=== PATIENT | female | born 1955 | race Caucasian/White ===

== ENCOUNTER 2020-09-18 15:12 | Outpatient (REF) | payer MEDICARE, MEDICAID, SELFPAY ==
--- NOTE | ~2020-09-18 | XR_ITS ---
EXAMINATION: XR HIP, RIGHT CLINICAL INFORMATION: Fall. Right hip pain. COMPARISON: None TECHNIQUE: Two views of the right hip. FINDINGS: No displaced fracture. No dislocation. Small lateral acetabular marginal osteophytes. No osseous erosion. Atherosclerotic calcifications. XR/XR hip RT min 2V IMPRESSION: No displaced fracture. Mild right hip osteoarthritis.
== END 2020-09-18 15:13 | disposition home or self-care (01) ==
LOC: HO.XRAY 15:12
PROVIDERS: PCP Internal Medicine; Visit Provider Internal Medicine
DX: Z13.89 Encounter for screening for other disorder (principal)
CPT/HCPCS: 73502

== ENCOUNTER 2020-09-18 17:25 | Emergency (ER) | payer MEDICARE, MEDICAID, SELFPAY ==
[2020-09-18 17:33] VITALS: BP 187/70; PULSE 108; RESP 18; TEMP 37.2; O2SAT 95; BMI 38.8
[2020-09-18 17:58] VITALS: BP 154/58; PULSE 100; RESP 19; TEMP 36.8; O2SAT 95
--- NOTE | 2020-09-18 18:14 | ED_ITS ---
HPI - Extremity Injury (Lower) General Chief Complaint: Extremity Injury, Lower Stated Complaint: abnormal xray - rt hip Time Seen by Provider: 09/18/20 17:35 Source: patient Mode of arrival: ambulatory Limitations: no limitations History of Present Illness HPI Narrative: 65 years old female sustained mechanical fall 5 days ago, patient has been complaining of right hip pain, pain started after the fall 5 days ago and progressively getting worse and more constant, patient still able to ambulate on her right lower extremities with difficulties a limping, patient was seen and evaluated by her PCP who ordered a right hip x-ray and ask her to come to the ED. Patient otherwise declined any head pain, neck pain, chest pain, abdominal pain. Related Data Previous Rx's Medication Instructions Recorded oxycodone 5 mg PO BID PRN #7 cap 09/18/20 Allergies Allergy/AdvReac Type Severity Reaction Status Date / Time No Known Allergies Allergy Unverified 04/03/20 17:13 [No Known Allergies*] Review of Systems Review of Systems: All other systems are reviewed and are negative Constitutional: Reports as per HPI and Reports no additional constitutional complaints Eyes: Reports as per HPI and Reports no additional eye complaints Reports system reviewed and no additional complaints, except as documented Cardiovascular: Reports as per HPI and Reports no additional cardiovascular complaints Respiratory: Reports as per HPI and Reports no additional respiratory complaints Gastrointestinal: Reports as per HPI and Reports no additional gastrointestinal complaints Genitourinary: Reports no additional female genitourinary complaints Musculoskeletal: Reports no additional musculoskeletal complaints Skin/Breast: Reports system reviewed and no additional complaints, except as docu Psychiatric: Reports no additional psychiatric complaints Endocrine: Reports no additional endocrine complaints Hematologic/Lymphatic: Reports no additional hematologic/lymphatic complaints Allergic/Immunologic: Reports no additional allergic/immunologic complaints Reports system reviewed and no additional complaints, except as documented and Reports Abnormal speech present [facility] Past Medical History Medical History COPD with asthma HLD (hyperlipidemia) HTN (hypertension) Stroke Surgical History H/O heart artery stent Social History Social History Alcohol intake: never Smoking Status: Never smoker Use of substances other than those prescribed or required for medical reasons: No Advance Directives: No Advance Directives Information Provided: Yes Physical Exam Vital Signs: Vital Signs: Last Vital Signs Temp 98.3 F 09/18/20 17:58 Pulse 100 09/18/20 17:58 Resp 19 09/18/20 17:58 BP 154/58 H 09/18/20 17:58 Pulse Ox 95 09/18/20 17:58 Body Mass Index 38.8 Vital signs have been reviewed as appeared to be correct. Blood pressure in the high range.. Heart rate normal. Respiration rate normal. Temperature normal. Oxygen saturation normal. Appearance: Alert. Oriented X3. No acute distress. Head: Normal external exam. Normocephalic. Atraumatic. No Taylor signs noted. No raccoon eyes noted Eyes: PERRLA. EOMI. Conjunctiva and sclera normal. Eyelids normal. ENT: TM's Normal. Pharynx normal. Uvula midline. Moist mucous membranes. No trismus noted. No drooling noted. No muffled voice noted. Neck: Normal inspection. Neck supple. FROM. No adenopathy. Thyroid Normal. No meningeal signs. No neck mass noted. CVS: Normal heart rate and rhythm. Heart sound normal. No murmurs noted. Pulses normal throughout. Respiratory: No respiratory distress. Painless inspiration. Breath sounds normal. No wheezes/rales/rhonchi noted. Chest nontender. No accessory muscle usage noted or decreased air movement noted. Abdomen: Soft and nontender. Bowel sounds normal in all 4 quadrants. No distention noted. No organomegaly noted. No visible injury noted. Back: No CVA tenderness. Full range of motion noted. Skin: Skin warm and dry. Normal skin color. Normal skin turgor. No rashes/lesions/lacerations noted. Extremities: Right hip area tenderness, no deformity, no lower extremities rotation or shortness. Neurovascularly intact. Neuro: Oriented X 3. No motor deficit. No sensory deficit. Reflexes normal. Course Course Course Narrative: Assessment and plan. 65-year-old female sustained mechanical fall 5 days ago at home, patient had outpatient x-ray of the right hip and patient was sent to the emergency department for further evaluation. Patient in the emergency department is able to bear weight with difficulty patient was given oxycodone pain has improved and patient now able to ambulate better with less pain. Will discharge the patient to follow-up with PCP with prescription of oxycodone 10. Pills. MDM - Extremity Injury (Lower) Imaging Data Right hip x-ray: Radiologist's impression: No displaced fracture. No dislocation. Small lateral acetabular marginal osteophytes. No osseous erosion. Atherosclerotic calcifications. Discharge Plan Discharge Clinical Impression: Contusion of hip, right Qualifiers: Encounter type: initial encounter Qualified Code(s): S70.01XA - Contusion of right hip, initial encounter Patient Disposition: Home, Self-Care Instructions: Hip Contusion (ED) Prescriptions: New oxycodone 5 mg capsule 5 mg PO BID PRN (Reason: pain) Qty: 7 RF: 0 Referrals: Giorgio Burgess MD [Primary Care Provider] - 2 days
[2020-09-18] MEDS: oxyCODONE HCl Immed Release 5 MG TABLET PO (18:22)
== END 2020-09-18 19:57 | disposition home or self-care (01) ==
PROVIDERS: Emergency Provider Emergency Medicine; PCP Internal Medicine
DX: S70.01XA Contusion of right hip, initial encounter (principal); W19.XXXA Unspecified fall, initial encounter; I10 Essential (primary) hypertension; E78.5 Hyperlipidemia, unspecified; Y93.9 Activity, unspecified; Y92.9 Unspecified place or not applicable; Y99.9 Unspecified external cause status; Z86.73 Personal history of transient ischemic attack (TIA), and cerebral infarction without residual deficits
CPT/HCPCS: 73502; 99283; 99284

== ENCOUNTER 2020-09-25 12:40 | Outpatient (REF) | payer MEDICARE, MEDICAID, SELFPAY ==
--- NOTE | ~2020-09-25 | CT_ITS ---
EXAMINATION: CT HIP WITHOUT CONTRAST, RIGHT CLINICAL INFORMATION: Status post fall, right hip pain. COMPARISON: X-ray of the right hip 09/18/2020. TECHNIQUE: CT scan of the right hip was performed with reconstruction imaging performed at the acquisition workstation. This CT examination was performed using dose optimization techniques as appropriate, variously including the following: *Automated exposure control *Adjustment of mA and/or kV according to patient size (this includes techniques or standardized protocols for targeted exams where dose is matched to indication/reason for exam; i.e. extremities or head) *Use of iterative reconstruction technique DLP: 205 mGy-cm FINDINGS: FEMOROACETABULAR JOINT: There are marginal osteophytes and mild joint space narrowing indicative of mild osteoarthritis. No definite effusion. I do not see a fracture. Mild degenerative changes of the symphysis pubis. MUSCLES AND TENDONS: Unremarkable. VASCULAR: There is calcific atherosclerotic disease. VISUALIZED BOWEL: Diverticulosis without diverticulitis of the sigmoid colon. LYMPH NODES: Normal. CT/CT hip RT wo con IMPRESSION: No fracture or acute abnormality. Mild osteoarthritis of the right hip. Mild degenerative changes of the symphysis pubis. Calcific atherosclerotic disease.
== END 2020-09-25 12:41 | disposition home or self-care (01) ==
LOC: HO.CT 12:40
PROVIDERS: Visit Provider Internal Medicine
DX: M25.551 Pain in right hip (principal)
CPT/HCPCS: 73700

== ENCOUNTER 2020-11-17 13:25 | Outpatient (REF) | payer MEDICARE, MEDICAID, SELFPAY ==
[2020-11-17 14:00] VITALS: BP 211/86; PULSE 97; RESP 20; TEMP 36.4; O2SAT 95
[2020-11-17 14:17] VITALS: BMI 36.9
== END 2020-11-17 13:26 | disposition home or self-care (01) ==
LOC: HO.MS 13:25
PROVIDERS: PCP Internal Medicine; Visit Provider Ophthalmology
PROC: (CPT 67840; principal; 2020-11-17 15:00)
DX: H02.824 Cysts of left upper eyelid (principal); L82.1 Other seborrheic keratosis; D23.122 Other benign neoplasm of skin of left lower eyelid, including canthus; I10 Essential (primary) hypertension; J44.9 Chronic obstructive pulmonary disease, unspecified; Z86.73 Personal history of transient ischemic attack (TIA), and cerebral infarction without residual deficits
CPT/HCPCS: 67840 ×2; 88304; 88305

== ENCOUNTER → 2020-12-09 11:26 | Outpatient (BNVA) | payer MEDICARE, MEDICAID, SELFPAY | PROVIDERS: PCP Internal Medicine; Referring Provider Internal Medicine; Visit Provider Surgery | DX: N64.4 Mastodynia (principal) | CPT/HCPCS: 99212 ==

== ENCOUNTER → 2021-01-12 14:18 | Outpatient (BNVA) | payer MEDICARE, MEDICAID, SELFPAY | PROVIDERS: PCP Internal Medicine; Referring Provider Internal Medicine; Visit Provider Internal Medicine Cardiovascular Disease | DX: I25.118 Atherosclerotic heart disease of native coronary artery with other forms of angina pectoris (principal); I10 Essential (primary) hypertension; I21.9 Acute myocardial infarction, unspecified; J44.9 Chronic obstructive pulmonary disease, unspecified; E78.5 Hyperlipidemia, unspecified; Z95.5 Presence of coronary angioplasty implant and graft; Z79.82 Long term (current) use of aspirin; Z79.899 Other long term (current) drug therapy | CPT/HCPCS: 93005; 99212 ==

== ENCOUNTER 2021-03-24 14:43 | Emergency (ER) | payer MEDICARE, MEDICAID, SELFPAY ==
--- NOTE | ~2021-03-24 | XR_ITS ---
EXAMINATION: XR WRIST, RIGHT CLINICAL INFORMATION: Pain COMPARISON: Previous exam December 2016 TECHNIQUE: 4 views of the right wrist. FINDINGS: No fracture or dislocation is seen. There may be slight widening of the scapholunate distance. Joint spaces are otherwise normal. There is a prominent soft tissue over the dorsal distal forearm. Soft tissues are otherwise unremarkable. XR/XR wrist RT min 3V IMPRESSION: Question slightly widened scapholunate joint. Prominent soft tissue over the dorsal distal forearm.
[2021-03-24 15:50] VITALS: BP 184/55; PULSE 82; RESP 18; TEMP 37; O2SAT 99; BMI 33.6
--- NOTE | 2021-03-24 18:24 | ED.EXTPRO ---
HPI - Extremity Problem General Chief complaint: Extremity Injury, Upper Stated complaint: rt wrist pain Time Seen by Provider: 03/24/21 18:24 Source: patient Mode of arrival: ambulatory Limitations: no limitations History of Present Illness HPI Narrative: right wrist pain for weeks, denies inury or fever Complaint: extremity pain Onset (ago): week(s) Pain Consistency: intermittent Location: right and upper extremity Quality: stabbing Related Data Home Medications Medication Instructions Recorded Confirmed amlodipine 10 mg tablet 10 mg PO DAILY 01/12/21 01/12/21 aspirin 81 mg tablet,delayed 81 mg PO DAILY 01/12/21 01/12/21 release (Adult Low Dose Aspirin) atorvastatin 40 mg tablet 40 mg PO BEDTIME 01/12/21 01/12/21 clopidogrel 75 mg tablet (Plavix) 75 mg PO DAILY 01/12/21 01/12/21 furosemide 20 mg tablet 20 mg PO DAILY 01/12/21 01/12/21 lisinopril 10 mg tablet 10 mg PO DAILY 01/12/21 01/12/21 Previous Rx's Medication Instructions Recorded isosorbide mononitrate 60 mg 120 mg PO DAILY #60 tab 01/12/21 tablet,extended release 24 hr metoprolol tartrate 50 mg tablet 50 mg PO BID #60 tab 01/12/21 naproxen 500 mg tablet (Naprosyn) 500 mg PO BID #20 tab 03/24/21 Allergies Allergy/AdvReac Type Severity Reaction Status Date / Time No Known Allergies Allergy Verified 01/12/21 15:00 [No Known Allergies*] Review of Systems Constitutional: Constitutional: Reports no additional constitutional complaints Eyes: Eyes: Reports no additional eye complaints ENT: Denies dizziness Cardiovascular: Cardiovascular: Reports no additional cardiovascular complaints Respiratory: Respiratory: Reports as per HPI Gastrointestinal: Gastrointestinal: Reports no additional gastrointestinal complaints Genitourinary: Genitourinary: Reports no additional female genitourinary complaints Musculoskeletal: Musculoskeletal: Reports no additional musculoskeletal complaints Integumentary/Breasts: Skin/Breast: Denies rash Neurologic: Reports system reviewed and no additional complaints, except as documented, Denies dizziness and Denies Sensory deficit (Neuro) Psychiatric: Psychiatric: Denies anxiety [facility] Past Medical History Medical History (Updated 03/24/21 @ 18:32 by Yeyo Myers MD) Bilateral carotid artery disease CAD (coronary artery disease) COPD with asthma HLD (hyperlipidemia) HTN (hypertension) Myocardial infarction Stroke Surgical History (Updated 12/09/20 @ 12:41 by Leonardo Nava MD) H/O heart artery stent Social History Social History Alcohol intake: never Physical Exam Vital Signs: Vital Signs: Last Vital Signs Temp 98.6 F 03/24/21 15:50 Pulse 82 03/24/21 15:50 Resp 18 03/24/21 15:50 BP 184/55 H 03/24/21 15:50 Pulse Ox 99 03/24/21 15:50 Body Mass Index 33.6 Const: General: healthy appearing Nutritional Appearance: average body habitus Orientation/consciousness: oriented to person and patient oriented x3 Limitations: no limitations HENMT: Head: Yes normal to inspection Ears: external ears normal General nose exam: Normal external nose present Mouth: Normal oral and palatal mucosa present and oropharynx normal Throat: Yes posterior oropharynx normal Eyes: General: appearance normal, both eyes and all related structures Neck: Other: supple Neck: Yes normal visual inspection Chest: Chest palpation & inspection: normal inspection of the chest Resp: Auscultation: clear to auscultation bilaterally Cardio: Jugular venous distension: no JVD Rate: regular rate Rhythm: regular rhythm Heart sounds: S1 normal heart sound present and S2 normal heart sound present GI: Inspection: Yes normal to inspection Palpation (GI): Soft to palpation, nontender and No hepatosplenomegaly present Auscultation: normal bowel sounds : General: Yes no CVA tenderness Back/Spine/Pelvis: Back: no CVA tenderness Skin: General skin exam: no rashes or lesions noted Neuro: General: oriented to person and patient oriented x3 Cranial nerves: Yes CN's II-XII intact bilaterally Motor exam (neuro): 5/5 motor strength present throughout Sensory Exam: No Sensory deficit (Neuro) Extrem: Other: wrist with pain with range of motion, no effusion or redness Psych: Appearance: grossly normal Course Reevaluation(s) Reevaluation #1: patient with some djd on xray will start nsaids. no evidence of effusion, infection or gout. Impression is arthritic flair Time: 18:28 MDM - Extremity (Nontraumatic) Imaging Data wrist xray: Radiologist's impression: FINDINGS: No fracture or dislocation is seen. There may be slight widening of the scapholunate distance.? Joint spaces are otherwise normal. There is a prominent soft tissue over the dorsal distal forearm. Soft tissues are otherwise unremarkable. XR/XR wrist RT min 3V IMPRESSION: Question slightly widened scapholunate joint. Prominent soft tissue over the dorsal distal forearm. Discharge Plan Discharge Clinical Impression: Arthritis Acute wrist pain Qualifiers: Laterality: right Qualified Code(s): M25.531 - Pain in right wrist Patient Disposition: Home, Self-Care Instructions: Arthralgia (ED) Prescriptions: New naproxen [Naprosyn] 500 mg tablet 500 mg PO BID Qty: 20 RF: 0 No Action aspirin [Adult Low Dose Aspirin] 81 mg tablet,delayed release (DR/EC) 81 mg PO DAILY RF: 0 furosemide 20 mg tablet 20 mg PO DAILY RF: 0 clopidogrel [Plavix] 75 mg tablet 75 mg PO DAILY RF: 0 atorvastatin 40 mg tablet 40 mg PO BEDTIME RF: 0 amlodipine 10 mg tablet 10 mg PO DAILY RF: 0 lisinopril 10 mg tablet 10 mg PO DAILY RF: 0 isosorbide mononitrate 60 mg tablet extended release 24 hr 120 mg PO DAILY Qty: 60 RF: 0 metoprolol tartrate 50 mg tablet 50 mg PO BID Qty: 60 RF: 2 Referrals: Giorgio Burgess MD [Primary Care Provider] - 5 days
[2021-03-24 18:46] VITALS: BP 193/79; PULSE 84; RESP 16; TEMP 36.3; O2SAT 97
[2021-03-24] MEDS: Ketorolac Tromethamine 60 MG/2 ML VIAL IM (18:47)
[2021-03-24 19:02] VITALS: BP 160/80; PULSE 88; RESP 18
== END 2021-03-24 19:12 | disposition home or self-care (01) ==
LOC: HO.ED 18:33
PROVIDERS: Emergency Provider Emergency Medicine; PCP Internal Medicine
DX: M25.531 Pain in right wrist (principal); M19.031 Primary osteoarthritis, right wrist; I10 Essential (primary) hypertension; E78.5 Hyperlipidemia, unspecified; Z79.02 Long term (current) use of antithrombotics/antiplatelets; Z79.82 Long term (current) use of aspirin; Z79.899 Other long term (current) drug therapy
CPT/HCPCS: 73110; 96372; 99283; 99284; J1885

== ENCOUNTER → 2021-04-01 09:11 | Outpatient (BNVA) | payer MEDICARE, MEDICAID, SELFPAY | PROVIDERS: PCP Internal Medicine; Referring Provider Internal Medicine; Visit Provider Internal Medicine Cardiovascular Disease | DX: I25.10 Atherosclerotic heart disease of native coronary artery without angina pectoris (principal); I10 Essential (primary) hypertension; R00.2 Palpitations | CPT/HCPCS: 99212 ==

== ENCOUNTER → 2021-04-02 14:50 | Outpatient (REF) | payer MEDICARE, MEDICAID, SELFPAY ==
--- NOTE | 2021-04-02 14:53 | HM_ITS ---
Total monitoring time 3 days 22 hours. Underlying rhythm is sinus. Minimum heart rate 76/Min. Maximum 158/min. Average 106/minute. No atrial fibrillation or flutter. Occasional supraventricular ectopy with a burden of 0.93%. Short runs noted-29 episodes Longest 18 beats. Occasional ventricular ectopy with 2 morphologies and 131 couplets with a burden of 1.39%. No patient events. MTDD
[2021-04-02 15:26] LABS: MANUAL DIFF FLAG NO
[2021-04-02 15:29] LABS: Basophils Percent Auto 0.4 % (0-2); Eosinophils Absolute Auto 0.4 X10*3/uL (0.0-0.4); Eosinophils Percent Auto 4.6 % (0-4); Hematocrit 34.3 % (37-47); Hemoglobin 10.6 g/dl (12.0-16.0); Imm Gran Abs Auto 0.03 X10*3/uL (0.00-0.03); Imm Gran Pct Auto 0.4 % (0.0-0.4); Lymphocytes Absolute Auto 0.9 X10*3/uL (1.2-4.9); Lymphocytes Percent Auto 11.4 % (20-40); Mean Corpuscular HGB Conc 30.9 g/dl (31.0-35.0); Mean Corpuscular Hemoglobin 27.9 pg (27.0-33.0); Mean Corpuscular Volume 90.3 fL (80-98); Mean Platelet Volume 9.8 fL (9.4-12.3); Monocytes Absolute Auto 0.7 X10*3/uL (0.1-1.2); Monocytes Percent Auto 9.3 % (2-11); Neutrophils Absolute Auto 5.8 X10*3/uL (2.0-8.3); Neutrophils Percent Auto 73.9 % (45-73); Platelet Count 321 X10*3/uL (160-400); Red Cell Distribution Width 14.6 % (11.0-16.0); White Blood Count 7.8 X10*3/uL (4.8-10.8)
[2021-04-02 15:53] LABS: Anion Gap 13 (12-20); Blood Urea Nitrogen 19 mg/dL (9-16); Calcium 8.8 mg/dL (8.4-10.2); Carbon Dioxide 28 mmol/L (22-29); Chloride 103 mmol/L (96-108); Cholesterol 182 mg/dL; Estimated Glomerular Filt Rate > 60; Glucose Random 116 mg/dL (60-115); HDL Cholesterol 36 mg/dL; Iron 42 mcg/dL (30-160); LDL Cholesterol Calculated 96 mg/dl; Percent Iron Saturation 12 % (15-50); Potassium 4.5 mmol/L (3.3-5.1); Sodium 139 mmol/L (135-145); Total Iron Binding Capacity 356 mcg/dL (228-428); Triglycerides 251 mg/dL; Unsaturated Iron Binding 314 ug/dL
[2021-04-02 16:28] LABS: Thyroid Stimulating Hormone 3.52 uIU/mL (0.32-4.0)
== END ==
LOC: HO.CARD 14:50
PROVIDERS: Internal Medicine; Visit Provider Internal Medicine Cardiovascular Disease
DX: R00.2 Palpitations (principal)
CPT/HCPCS: 36415; 80048; 80061; 83540; 84443; 85025; 93242

== ENCOUNTER 2021-04-08 13:37 | Emergency (ER) | payer MEDICARE, MEDICAID, SELFPAY ==
[2021-04-08 14:29] VITALS: BP 204/79; PULSE 111; RESP 16; TEMP 36.6; O2SAT 98; BMI 36.9
--- NOTE | 2021-04-09 12:59 | PC.NURSE ---
I contacted Farzana today as she was LWBS from our ED yesterday. She indicated she was still having difficulty breathing, audible wheezing heard over the phone with patient stating she is still having a hard time. I offered the patient to return for care today and she indicated she will be coming in this afternoon. 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
== END 2021-04-08 22:26 | disposition left against medical advice (07) ==
LOC: HO.ED 15:33
PROVIDERS: Emergency Provider Emergency Medicine; PCP Internal Medicine
DX: J44.1 Chronic obstructive pulmonary disease with (acute) exacerbation (principal)
CPT/HCPCS: 99282

== ENCOUNTER 2021-04-09 15:25 | Emergency (ER) | payer MEDICARE, MEDICAID, SELFPAY ==
--- NOTE | ~2021-04-09 | XR_ITS ---
EXAMINATION: XR CHEST CLINICAL INFORMATION: Shortness of breath COMPARISON: Chest x-ray March 12, 2020 TECHNIQUE: 2 views of the chest were obtained. FINDINGS: Surgical clips the base of left neck. 3 vascular stents are noted: Vascular stent over the right supraclavicular region. Vascular stent over the left cardiac silhouette. Vascular stent over the medial left superior mediastinum. No acute abnormality. Lungs are normally aerated. There is no pleural effusion or pneumothorax. Heart size is normal. Cardiac and mediastinal contours are normal. XR/XR chest 2V IMPRESSION: No acute abnormality of chest.
[2021-04-09 15:31] VITALS: BP 116/58; PULSE 86; RESP 18; TEMP 36.8; O2SAT 98; BMI 36.9
--- NOTE | 2021-04-10 11:32 | ED.GENADULT ---
HPI - General Adult - General Chief complaint: Dyspnea Stated complaint: Difficulty breathing/Weakness - Related Data Home Medications Medication Instructions Recorded Confirmed amlodipine 10 mg tablet 10 mg PO DAILY 01/12/21 04/01/21 aspirin 81 mg tablet,delayed 81 mg PO DAILY 01/12/21 04/01/21 release (Adult Low Dose Aspirin) atorvastatin 40 mg tablet 40 mg PO BEDTIME 01/12/21 04/01/21 clopidogrel 75 mg tablet (Plavix) 75 mg PO DAILY 01/12/21 04/01/21 furosemide 20 mg tablet 20 mg PO DAILY 01/12/21 04/01/21 lisinopril 10 mg tablet 10 mg PO DAILY 01/12/21 04/01/21 alprazolam 1 mg tablet 1 mg PO TID PRN 04/01/21 04/01/21 esomeprazole magnesium 20 mg 20 mg PO DAILY 04/01/21 04/01/21 capsule,delayed release isosorbide mononitrate 60 mg 60 mg PO DAILY tab 04/01/21 04/01/21 tablet,extended release 24 hr levothyroxine 50 mcg tablet 50 mcg PO DAILY 04/01/21 04/01/21 multivitamin with folic acid 400 1 tab PO DAILY 04/01/21 04/01/21 mcg tablet (Tab-A-Charisse) tramadol 50 mg tablet 50 mg PO Q6H PRN 04/01/21 04/01/21 zolpidem 10 mg tablet 10 mg PO BEDTIME PRN 04/01/21 04/01/21 Previous Rx's Medication Instructions Recorded naproxen 500 mg tablet (Naprosyn) 500 mg PO BID #20 tab 03/24/21 ranolazine 500 mg tablet,extended 500 mg PO Q12H #60 tab 04/01/21 release,12 hr (Ranexa) metoprolol tartrate 50 mg tablet 50 mg PO BID #60 tab 04/10/21 Allergies Allergy/AdvReac Type Severity Reaction Status Date / Time No Known Allergies Allergy Verified 04/09/21 15:31 [No Known Allergies*] Course Vital Signs Temperature 98.2 F 04/09/21 15:31 Pulse Rate 86 04/09/21 15:31 Respiratory Rate 18 04/09/21 15:31 Blood Pressure 116/58 L 04/09/21 15:31 Pulse Oximetry 98 04/09/21 15:31 Temperature 98.2 F 04/09/21 15:31 Pulse Rate 86 04/09/21 15:31 Respiratory Rate 18 04/09/21 15:31 Blood Pressure 116/58 L 04/09/21 15:31 Pulse Oximetry 98 04/09/21 15:31 Discharge Disposition: Left Without Being Seen
== END 2021-04-09 18:32 | disposition left against medical advice (07) ==
LOC: HO.ED 18:29
PROVIDERS: Emergency Provider Emergency Medicine; PCP Internal Medicine
DX: R06.02 Shortness of breath (principal); R53.1 Weakness; Z79.899 Other long term (current) drug therapy; Z99.81 Dependence on supplemental oxygen
CPT/HCPCS: 71046; 99281; 99283

== ENCOUNTER 2021-05-12 09:27 | Outpatient (REF) | payer MEDICARE, MEDICAID, SELFPAY ==
[2021-05-12 12:17] LABS: C Reactive Protein 3.75 mg/dL (< or = 0.50); Magnesium 1.7 mg/dL (1.6-2.6)
== END 2021-05-12 09:28 | disposition home or self-care (01) ==
LOC: HO.LAB 09:27
PROVIDERS: PCP Internal Medicine; Referring Provider Internal Medicine; Visit Provider Internal Medicine Cardiovascular Disease
DX: R25.2 Cramp and spasm (principal); I73.9 Peripheral vascular disease, unspecified; J44.9 Chronic obstructive pulmonary disease, unspecified; I10 Essential (primary) hypertension; I25.118 Atherosclerotic heart disease of native coronary artery with other forms of angina pectoris; Z79.899 Other long term (current) drug therapy
CPT/HCPCS: 36415; 82550; 83735; 86140; 99212

== ENCOUNTER 2021-06-04 12:38 | Outpatient (REF) | payer MEDICARE, MEDICAID, SELFPAY ==
[2021-06-04 12:50] LABS: MANUAL DIFF FLAG NO
[2021-06-04 13:03] LABS: Basophils Percent Auto 0.3 % (0-2); Eosinophils Absolute Auto 0.5 X10*3/uL (0.0-0.4); Eosinophils Percent Auto 6.4 % (0-4); Hematocrit 33.8 % (37.0-47.0); Hemoglobin 10.5 g/dl (12.0-16.0); Imm Gran Abs Auto 0.02 X10*3/uL (0.00-0.03); Imm Gran Pct Auto 0.3 % (0.0-0.4); Lymphocytes Absolute Auto 1.5 X10*3/uL (1.2-4.9); Lymphocytes Percent Auto 20.4 % (20-40); Mean Corpuscular HGB Conc 31.1 g/dl (31.0-35.0); Mean Corpuscular Hemoglobin 28.2 pg (27.0-33.0); Mean Corpuscular Volume 90.9 fL (80.0-98.0); Mean Platelet Volume 9.4 fL (9.4-12.3); Monocytes Absolute Auto 0.7 X10*3/uL (0.1-1.2); Monocytes Percent Auto 9.3 % (2-11); Neutrophils Absolute Auto 4.6 x10*3/uL (2.0-8.3); Neutrophils Percent Auto 63.3 % (45-73); Platelet Count 367 X10*3/uL (160-400); Red Blood Count 3.72 X10*6/uL (4.20-5.50); Red Cell Distribution Width 17.1 % (11.0-16.0); White Blood Count 7.2 X10*3/uL (4.8-10.8)
[2021-06-04 13:13] LABS: INTERNATIONAL NORM RATIO 1.1 (0.9-1.1); Prothrombin Time 12.3 SEC (9.9-13.0)
[2021-06-04 13:19] LABS: Anion Gap 12 (12-20); Blood Urea Nitrogen 16 mg/dL (9-16); Carbon Dioxide 32 mmol/L (22-29); Chloride 104 mmol/L (96-108); Estimated Glomerular Filt Rate > 60; Potassium 3.6 mmol/L (3.3-5.1); Sodium 144 mmol/L (135-145)
== END 2021-06-04 12:39 | disposition home or self-care (01) ==
LOC: HO.LAB 12:38
PROVIDERS: PCP Internal Medicine; Visit Provider Surgery Vascular Surgery
DX: R55 Syncope and collapse (principal); R22.32 Localized swelling, mass and lump, left upper limb
CPT/HCPCS: 36415; 80051; 82565; 84520; 85025; 85610

== ENCOUNTER → 2021-06-17 13:43 | Outpatient (BNVA) | payer MEDICARE, MEDICAID, SELFPAY | PROVIDERS: PCP Internal Medicine; Visit Provider Internal Medicine | DX: J44.9 Chronic obstructive pulmonary disease, unspecified (principal) | CPT/HCPCS: 99202 ==

== ENCOUNTER 2021-06-30 10:45 | Outpatient (REF) | payer MEDICARE, MEDICAID, SELFPAY ==
--- NOTE | 2021-06-30 16:04 | PFT_ITS ---
Forced vital capacity, FEV1, [id number], and MVV are all markedly decreased. Post bronchodilator therapy, there is significant improvement in all parameters. Total lung capacity is normal. Residual volume also normal. Diffusion capacity markedly decreased. CONCLUSION: Severe obstructive airway disorder with partial reversibility after bronchodilator therapy. These findings are consistent with asthma/COPD overlap syndrome. Compared to the results on 09/07/2013, there is no significant change. MD JONI Zhu/MODL / [id number]
== END 2021-06-30 10:46 | disposition home or self-care (01) ==
LOC: HO.RESP 10:45
PROVIDERS: PCP Internal Medicine; Visit Provider Internal Medicine
DX: R06.00 Dyspnea, unspecified (principal); J44.9 Chronic obstructive pulmonary disease, unspecified
CPT/HCPCS: 94060; 94727; 94729

== ENCOUNTER → 2021-07-08 13:12 | Outpatient (BNVA) | payer MEDICARE, MEDICAID, SELFPAY | PROVIDERS: PCP Internal Medicine; Visit Provider Internal Medicine | DX: J44.9 Chronic obstructive pulmonary disease, unspecified (principal) | CPT/HCPCS: 99212 ==

== ENCOUNTER → 2021-10-14 12:52 | Outpatient (BNVA) | payer MEDICARE, MEDICAID, SELFPAY | PROVIDERS: PCP Internal Medicine; Visit Provider Internal Medicine | DX: J44.9 Chronic obstructive pulmonary disease, unspecified (principal) | CPT/HCPCS: 99212 ==